=== PATIENT | male | born 1960 | race Caucasian/White ===

== ENCOUNTER 2022-01-22 10:37 | Inpatient (IN) ==
[2022-01-22] MEDS ORDERED: NOREPINEPHRINE 4 MG/4 ML VIAL IV ONE (13:08)
[2022-01-22] MEDS ORDERED: ALBUTEROL/IPRATROPIUM 3 ML NEB RESP TX PRN (13:27)
[2022-01-22] MEDS ORDERED: ACETAMINOPHEN 325 MG TABLET PO PRN (13:27)
[2022-01-22] MEDS ORDERED: GLUCAGON 1 MG VIAL IM PRN (13:27)
[2022-01-22] MEDS ORDERED: ONDANSETRON 4 MG/2 ML VIAL IV PRN (13:27)
[2022-01-22 13:56] LABS: Albumin 2.1 G/DL (3.4-5.0); Bilirubin,Total 0.7 MG/DL (0.20-1.00); Calcium 7.8 MG/DL (8.5-10.1); Osmolality,Calculated 297.1 MOS/KG (273-304); Potassium 3.5 MMOL/L (3.5-5.1); Total Protein 5.4 G/DL (6.4-8.2)
[2022-01-22] MEDS ORDERED: CLOTRIMAZOLE 1% CREAM 15 GM TUBE TOP SCH (13:57)
[2022-01-22] MEDS ORDERED: DEXTROSE 10% 250 ML BAG IV PRN (13:58)
[2022-01-22 14:11] LABS: Basophils # 0.1 10*3/uL (0.0-0.2); Basophils % 0.7 % (0.0-0.8); Eosinophils # 0.1 10*3/uL (0.0-0.87); Eosinophils % 1.2 % (0.00-10.9); Hematocrit 37.4 VOL% (42.0-52.0); Hemoglobin 12.1 GM/DL (14.0-18.0); Immature Granulocytes % 0.5 %; Immature Granulocytes Absolute 0.05 #; Lymphocytes # 1.7 10*3/uL (1.4-4.0); Lymphocytes % 16.8 % (21.2-54.2); Mean Corpuscular HGB Conc 32.4 GM/DL (32-36); Mean Corpuscular Volume 95.9 FL (87-102); Mean Platelet Volume 10.5 FL (9.6-12.0); Monocytes # 0.6 10*3/uL (0.11-0.8); Monocytes % 6.3 % (1.7-12.7); NRBC # 0.02 10*3/uL; Neutrophils % 74.5 % (38.7-73.9); Platelet Count 255 T/CUMM (130-400); Red Cell Distribution Width 15.7 % (9.3-17.3); White Blood Count 10.1 T/CUMM (4-12)
[2022-01-22] MEDS ORDERED: LACTULOSE 320 GM/480 ML BOTTLE RECTAL ONE (14:15)
[2022-01-22] MEDS ORDERED: HALOPERIDOL 5 MG/ML AMP IM PRN (14:34)
[2022-01-22] MEDS ORDERED: SODIUM BICARB INJ 150 MEQ in DEXTROSE 5% 850 ML IV SCH (15:00)
[2022-01-22] MEDS ORDERED: NYSTATIN CREAM 15 GM TUBE TOP SCH (15:00)
[2022-01-22] MEDS ORDERED: MORPHINE 2 MG/1 ML SYRINGE IV PRN (17:04)
[2022-01-22] MEDS: DIAZEPAM 10 MG/2 ML SYRINGE IV PRN ×4 (17:35→22:14)
[2022-01-22] MEDS ORDERED: LACTULOSE 20 GM/30 ML UDCUP PO SCH (18:00)
[2022-01-22] MEDS: MORPHINE 2 MG/1 ML SYRINGE IV PRN (19:03)
[2022-01-22] MEDS ORDERED: LACTULOSE 320 GM/480 ML BOTTLE RECTAL SCH (21:00)
[2022-01-22] MEDS ORDERED: PANTOPRAZOLE 40 MG VIAL IV SCH (21:00)
[2022-01-23] MEDS: DIAZEPAM 10 MG/2 ML SYRINGE IV PRN ×8 (02:21→22:33)
[2022-01-23] MEDS: MORPHINE 2 MG/1 ML SYRINGE IV PRN ×11 (08:00→23:39)
[2022-01-23] MEDS ORDERED: PANTOPRAZOLE 40 MG TABLET PO SCH (09:00)
[2022-01-24] MEDS: MORPHINE 2 MG/1 ML SYRINGE IV PRN ×2 (00:05→01:08)
[2022-01-24] MEDS: DIAZEPAM 10 MG/2 ML SYRINGE IV PRN (00:42)
== END 2022-01-24 01:45 | disposition expired | DRG 682 ==
LOC: N.ICU 13:00 → UNDODISIN 01-24 01:45
PROVIDERS: ADMIT Internal Medicine; ATTEND Internal Medicine